=== PATIENT | male | born 1985 | race Caucasian/White ===

== ENCOUNTER 2021-12-22 20:51 | Inpatient (IN) | payer BC ==
[~2021-12-22] VITALS: Ht 172.7 cm; Wt 63.8 kg
[2021-12-22 22:18] LABS: BASO # 0.01 K/mm3 (0.02-0.10); EOS # 0.02 K/mm3 (0.04-0.40); EOS % 0.3 % (0.0-4.0); HEMATOCRIT 39.2 % (42.0-52.0); HEMOGLOBIN 13.1 g/dL (13.5-18.0); LYMPH# 0.78 K/mm3 (1.50-4.00); MEAN CELL VOLUME 97 fl (78-100); MEAN CORPUSCULAR HEMOGLOBIN 33 pg (27-31); MEAN CORPUSCULAR HGB CONC 33 g/dL (33-37); MEAN PLATELET VOLUME 10.2 fl (7.4-10.4); MONO # 0.52 K/mm3 (0.20-0.80); NEU # 5.45 K/mm3 (1.40-6.50); PLATELET COUNT 208 K/mm3 (130-400); RED BLOOD COUNT 4.03 M/mm3 (4.20-5.60); RED CELL DISTRIBUTION WIDTH 11.7 % (11.5-14.5); WHITE BLOOD COUNT 6.8 K/mm3 (4.8-10.8)
[2021-12-22 22:26] LABS: ALBUMIN 3.7 g/dL (3.5-5.0)
[2021-12-22 22:28] LABS: CALCIUM 8.3 mg/dL (8.3-10.5)
[2021-12-22 22:29] LABS: TOTAL PROTEIN 5.6 g/dL (6.4-8.3)
[2021-12-22 22:31] LABS: TOTAL BILIRUBIN 1.4 mg/dL (0.2-1.2)
[2021-12-22 23:38] LABS: ACETAMINOPHEN < 1 ug/mL; ALCOHOL IN-HOUSE < 10 mg/dL (<10)
--- NOTE | 2021-12-22 23:53 | NUR ---
36 year old male patient admitted acute via wheel chair to room 204. Alert and oriented x 4. Oriented to room and call light. Denies nausea at this time. Rates mid abdomin pain 4/10 on pain scale dull at this time. IVFs NS begun at 125mls\hr to 20gauge IV KANE. Rests self back in bed. Has own heart monitor that keeps in pocket for HX of low HR. Admit DX: Transaminitis, Intractable nausea/vomiting and abdominal pain.
[2021-12-22 23:54] LABS: PROTHROMBIN TIME 14.6 SECONDS (9.0-12.0)
[2021-12-23] VITALS: BP 124/80
[2021-12-23 00:20] LABS: URINE APPEARANCE CLEAR; URINE COLOR YELLOW; URINE PROTEIN(semi-quant) 1+ (NEGATIVE)
[2021-12-23 00:21] LABS: URINE BILIRUBIN NEGATIVE (NEGATIVE); URINE GLUCOSE NEGATIVE (NEGATIVE); URINE KETONE 1+ (NEGATIVE); URINE LEUKOCYTE ESTERASE NEGATIVE (NEGATIVE); URINE NITRATE NEGATIVE (NEGATIVE); URINE UROBILINOGEN NORMAL (NORMAL)
[2021-12-23 00:22] LABS: URINE BLOOD 50 ery/uL (NEGATIVE)
[2021-12-23 00:23] LABS: URINE MUCUS PRESENT (NOT PRESENT)
--- NOTE | 2021-12-23 01:21 | NUR ---
Patient rests with eyes closed. Respirations with ease. SCD's on.
--- NOTE | 2021-12-23 04:40 | NUR ---
Patient awake and up to the bathroom to void. Urine yellow/foamy. Rests back in bed. Reports throbbing headache/frontal and mid abdominal pain 5-6/10 and fentanyl 50 mcg given SIV. Denies nausea. VSS. Afebrile.
[2021-12-23 05:40] VITALS: BP 119/76
--- NOTE | 2021-12-23 05:56 | NUR ---
Patient now resting with eyes closed. Respirations with ease.
--- NOTE | 2021-12-23 07:00 | NUR ---
REPORT RECIEVED FROM LEONELA OLIVEIRA. PATIENT CURRENTLY RESTING IN BED WITH TV ON. PATIENT EASILY AROUSABLE UPON ENTERING ROOM. OFFERS NO NEEDS OR COMPLAINTS AT THIS TIME. BED IN LOWEST LOCKED POSTION, CALL LIGHT WITHIN REACH.
[2021-12-23 07:36] LABS: ALBUMIN 3.7 g/dL (3.5-5.0)
[2021-12-23 07:37] LABS: EOS # 0.02 K/mm3 (0.04-0.40); EOS % 0.3 % (0.0-4.0); HEMATOCRIT 39.3 % (42.0-52.0); HEMOGLOBIN 13.3 g/dL (13.5-18.0); LYMPH# 0.85 K/mm3 (1.50-4.00); MEAN CELL VOLUME 96 fl (78-100); MEAN CORPUSCULAR HEMOGLOBIN 32 pg (27-31); MEAN CORPUSCULAR HGB CONC 34 g/dL (33-37); MEAN PLATELET VOLUME 10.7 fl (7.4-10.4); MONO # 0.79 K/mm3 (0.20-0.80); NEU # 5.16 K/mm3 (1.40-6.50); PLATELET COUNT 198 K/mm3 (130-400); POTASSIUM 4.1 mmol/L (3.5-5.1); RED CELL DISTRIBUTION WIDTH 11.7 % (11.5-14.5); WHITE BLOOD COUNT 6.8 K/mm3 (4.8-10.8)
[2021-12-23 07:38] LABS: CALCIUM 8.3 mg/dL (8.3-10.5)
[2021-12-23 07:39] LABS: TOTAL PROTEIN 5.7 g/dL (6.4-8.3)
[2021-12-23 07:41] LABS: TOTAL BILIRUBIN 0.8 mg/dL (0.2-1.2)
--- NOTE | 2021-12-23 08:30 | NUR ---
PATIENT PLEASENT AND COOPERATIVE WITH CARES. CURRENTLY SITTING UP IN BED WITH TV ON. FAMILY AT BEDSIDE. PATIENT C/O ABD PAIN 02/10, PRN MEDICATION GIVEN. PATIENT DENIES OTHER NEEDS OR COMPLAINTS AT THIS TIME. PATIENT ASKED ABOUT LAB RESULTS. THIS NURSE WILL FOLLOW UP ON THE RESULTS. PROVIDER AWARE. BED IN LOWEST LOCKED POSTION, CALL LIGHT WITHIN REACH.
[2021-12-23 09:59] VITALS: BP 114/72
--- NOTE | 2021-12-23 11:30 | NUR ---
PATIENT AND MOTHER NOTIFIED OF LAB RESULTS. VERBILIZED UNDERSTANDING. PROVIDER AWARE.
[2021-12-23 13:55] VITALS: BP 142/84
[2021-12-23 14:21] LABS: PROTHROMBIN TIME 14.1 SECONDS (9.0-12.0)
[2021-12-23 16:27] LABS: BASO # 0.02 K/mm3 (0.02-0.10); EOS # 0.08 K/mm3 (0.04-0.40); EOS % 1.5 % (0.0-4.0); HEMATOCRIT 35.2 % (42.0-52.0); HEMOGLOBIN 11.8 g/dL (13.5-18.0); LYMPH# 1.12 K/mm3 (1.50-4.00); MEAN CELL VOLUME 95 fl (78-100); MEAN CORPUSCULAR HEMOGLOBIN 32 pg (27-31); MEAN CORPUSCULAR HGB CONC 34 g/dL (33-37); MEAN PLATELET VOLUME 10.1 fl (7.4-10.4); MONO # 0.72 K/mm3 (0.20-0.80); NEU # 3.38 K/mm3 (1.40-6.50); PLATELET COUNT 156 K/mm3 (130-400); RED BLOOD COUNT 3.69 M/mm3 (4.20-5.60); RED CELL DISTRIBUTION WIDTH 11.6 % (11.5-14.5); WHITE BLOOD COUNT 5.3 K/mm3 (4.8-10.8)
[2021-12-23 16:30] LABS: ALBUMIN 3.1 g/dL (3.5-5.0); POTASSIUM 3.7 mmol/L (3.5-5.1)
[2021-12-23 16:32] LABS: CALCIUM 7.9 mg/dL (8.3-10.5)
[2021-12-23 16:33] LABS: TOTAL PROTEIN 4.8 g/dL (6.4-8.3)
[2021-12-23 16:35] LABS: TOTAL BILIRUBIN 0.6 mg/dL (0.2-1.2)
[2021-12-23 17:19] LABS: HEPATITIS C ANTIBODY Negative (Negative)
[2021-12-23 18:10] VITALS: BP 126/87
[2021-12-23 19:46] VITALS: BP 124/81
--- NOTE | 2021-12-23 20:01 | NUR ---
REPORT HAS BEEN CALLED TO ERIN SCHAEFER RN AT [facility] RM [id number]. PT WILL BE TRANSPORTED BY [facility]. FAMILY AND PATIENT UPDATED. CHART PRINTED. BELONGINGS PACKED AND WILL GO WITH FAMILY. CELL PHONE WILL REMAIN WITH PATIENT.
[2021-12-24 17:52] LABS: TB GOLD INTERPRETATION.TB GOLD Negative (Negative)
[2021-12-27 12:58] LABS: CYTOMEGALOVIRUS DNA PCR Not Detected (()); CYTOMEGALOVIRUS DNA PCR LOG Not Detected (())
== END 2021-12-23 21:28 | disposition short-term general hospital (02) | DRG 948 ==
LOC: ED 20:51 → MED/SURG 23:53
PROVIDERS: Nurse Practitioner; ADMIT Family Medicine
DX: R74.01 Elevation of levels of liver transaminase levels (principal); E80.6 Other disorders of bilirubin metabolism; E05.90 Thyrotoxicosis, unspecified without thyrotoxic crisis or storm; F41.9 Anxiety disorder, unspecified; T43.294A Poisoning by other antidepressants, undetermined, initial encounter; Y92.009 Unspecified place in unspecified non-institutional (private) residence as the place of occurrence of the external cause; M10.9 Gout, unspecified; F90.9 Attention-deficit hyperactivity disorder, unspecified type; R53.81 Other malaise; Z20.822 Contact with and (suspected) exposure to COVID-19; Z88.0 Allergy status to penicillin
CPT/HCPCS: J1650; J2060; J2550; J3010; J7030

== ENCOUNTER → 2021-12-22 | Outpatient (CLI) | payer OTHER ==
[~2021-12-22] VITALS: Ht 172.7 cm; Wt 64.1 kg
[~2021-12-22] MED LIST: DESYREL 100MG100 MG PO; PRILOSEC OTC20 MG PO; ZOFRAN ODT4 MG PO
[2021-12-22 12:07] VITALS: BP 119/74
[2021-12-22 14:25] VITALS: BP 118/76
== END ==
LOC: AMSURD 11:41
DX: E86.0 Dehydration (principal); E87.6 Hypokalemia; R11.2 Nausea with vomiting, unspecified; R00.1 Bradycardia, unspecified
CPT/HCPCS: J7030

== ENCOUNTER 2022-03-21 17:15 | Emergency (ER) | payer BC ==
[~2022-03-21] VITALS: Ht 172.7 cm; Wt 65.9 kg
[2022-03-21 18:16] LABS: BASO # 0.07 K/mm3 (0.02-0.10); EOS # 0.17 K/mm3 (0.04-0.40); EOS % 1.9 % (0.0-4.0); HEMATOCRIT 41.4 % (42.0-52.0); LYMPH# 1.67 K/mm3 (1.50-4.00); MEAN CELL VOLUME 95 fl (78-100); MEAN CORPUSCULAR HEMOGLOBIN 32 pg (27-31); MEAN CORPUSCULAR HGB CONC 34 g/dL (33-37); MEAN PLATELET VOLUME 9.6 fl (7.4-10.4); MONO # 0.46 K/mm3 (0.20-0.80); NEU # 6.39 K/mm3 (1.40-6.50); PLATELET COUNT 326 K/mm3 (130-400); RED BLOOD COUNT 4.35 M/mm3 (4.20-5.60); RED CELL DISTRIBUTION WIDTH 11.9 % (11.5-14.5); WHITE BLOOD COUNT 8.8 K/mm3 (4.8-10.8)
[2022-03-21 18:18] LABS: ALBUMIN 4.3 g/dL (3.5-5.0); POTASSIUM 4.1 mmol/L (3.5-5.1); SODIUM 141 mmol/L (136-145)
[2022-03-21 18:19] LABS: CALCIUM 9.5 mg/dL (8.3-10.5)
[2022-03-21 18:20] LABS: GLUCOSE 137 mg/dL (75-110); TOTAL PROTEIN 6.9 g/dL (6.4-8.3)
[2022-03-21 18:21] LABS: CARBON DIOXIDE 22 mmol/L (22-29)
[2022-03-21 18:22] LABS: TOTAL BILIRUBIN 0.6 mg/dL (0.2-1.2)
[2022-03-21 18:26] LABS: AST-SGOT 21 U/L (5-34)
[2022-03-21 18:27] LABS: ACETAMINOPHEN 184 ug/mL
[2022-03-21 18:34] LABS: ALCOHOL IN-HOUSE < 10 mg/dL (<10)
[2022-03-21 18:48] LABS: URINE WBC 0 /hpf (0-3)
[2022-03-21 19:11] LABS: URINE APPEARANCE CLEAR; URINE BILIRUBIN NEGATIVE (NEGATIVE); URINE BLOOD NEGATIVE (NEGATIVE); URINE COLOR YELLOW; URINE GLUCOSE NEGATIVE (NEGATIVE); URINE KETONE NEGATIVE (NEGATIVE); URINE LEUKOCYTE ESTERASE NEGATIVE (NEGATIVE); URINE NITRATE NEGATIVE (NEGATIVE); URINE PROTEIN(semi-quant) NEGATIVE (NEGATIVE); URINE UROBILINOGEN NORMAL (NORMAL)
[2022-03-21 19:37] LABS: PROTHROMBIN TIME 9.9 SECONDS (9.0-12.0)
[2022-03-21 19:43] LABS: ALT/SGPT 15 U/L (0-55)
[2022-03-22 00:50] VITALS: BP 122/82
== END 2022-03-22 00:50 | disposition short-term general hospital (02) ==
LOC: ED 17:15
PROVIDERS: Physician Assistant
DX: T39.1X1A Poisoning by 4-Aminophenol derivatives, accidental (unintentional), initial encounter (principal); F19.239 Other psychoactive substance dependence with withdrawal, unspecified; F17.220 Nicotine dependence, chewing tobacco, uncomplicated; Z20.822 Contact with and (suspected) exposure to COVID-19; Z28.310 Unvaccinated for COVID-19
CPT/HCPCS: J0132; J2060; J2270; J2405; J7030; J7060; J7070